=== PATIENT | male | born 1955 | race African-American/Black ===

== ENCOUNTER 2018-05-18 13:11 | Emergency (ER) | payer OTHER ==
[~2018-05-18] VITALS: Ht 188 cm; Wt 111.1 kg
[~2018-05-18 13:11] MED LIST: HALO100V IM; LISI10TA2 PO; OMEP20CA9 PO; TAMS0.4C2 PO
[2018-05-18] MEDS ORDERED: IV NORMAL SALINE 1000ML BAG 1,000 ML IV ONE (13:30)
--- NOTE | 2018-05-18 13:32 | PHYS DOC ---
Past Medical History Past Medical History: Schizophrenia Past Surgical History: No Surgical History Alcohol Use: None Drug Use: None Adult General Chief Complaint Chief Complaint: SYNCOPE HPI HPI Patient is a 62 year old male brought in by ambulance with a chief clinical or mental status. Apparently he was at the [facility] apparently has a history of schizophrenia and he was there because his friends were concerned about some bizarre behavior it is he does not recall exactly what it was. Apparently he received Haldol and Cogentin by the staff there and had a period of altered mental status he had vomiting and incontinence no definite seizure activity was identified blood sugar was 126 patient denied alcohol or drugs. On arrival to the emergency room the patient is now awake and alert and says that he is not having any symptoms. Review of Systems Review of Systems Constitutional: Denies fever or chills [] Eyes: Denies change in visual acuity, redness, or eye pain [] HENT: Denies nasal congestion or sore throat [] Respiratory: Denies cough or shortness of breath [] Cardiovascular: No additional information not addressed in HPI [] GI: Denies abdominal pain, Musculoskeletal: Denies back pain or joint pain [] Integument: Denies rash or skin lesions [] All other systems were reviewed and found to be within normal limits, except as documented in this note. Current Medications Current Medications Current Medications Medications (Trade) Dose Ordered Sig/Kane Start Time Stop Time Status Last Admin Dose Admin Lorazepam (Ativan) 2 mg 1X ONCE 05/18/18 14:45 05/18/18 14:46 DC 05/18/18 14:58 2 MG Sodium Chloride 1,000 ml @ 1,000 mls/hr 1X ONCE 05/18/18 13:30 05/18/18 14:29 DC 05/18/18 13:38 1,000 MLS/HR Allergies Allergies Allergies Coded Allergies Type Severity Reaction Last Updated Verified No Known Drug Allergies 11/21/15 No Physical Exam Physical Exam Constitutional: Well developed, well nourished, no acute distress, non-toxic appearance. [] HENT: Normocephalic, atraumatic, bilateral external ears normal, oropharynx moist, no oral exudates, nose normal. [] Eyes: PERRLA, EOMI, conjunctiva normal, no discharge. [] Neck: Normal range of motion, no tenderness, supple, no stridor. [] Pulmonary: Normal respiratory effort no increased work of breathing no obvious chest wall trauma lctab cv rrr no mrg Abdomen: Bowel sounds normal, soft, no tenderness, no masses, no pulsatile masses. [] Skin: Warm, dry, no erythema, no rash. [] Extremities: No tenderness, no cyanosis, no clubbing, ROM intact, mild symmetric edema. Neurologic: Alert and oriented X 2, b normal motor function, normal sensory function, no focal deficits noted. [] Psychologic: Blunted affect Current Patient Data Vital Signs Vital Signs Date Time Temp Pulse Resp B/P (MAP) Pulse Ox O2 Delivery O2 Flow Rate FiO2 05/18/18 14:10 96 125/80 (95) 96 Room Air 05/18/18 13:11 97.8 18 97.8 Lab Values Laboratory Tests Test 05/18/18 13:35 05/18/18 15:14 White Blood Count 6.8 x10^3/uL (4.0-11.0) Red Blood Count 5.16 x10^6/uL (4.30-5.70) Hemoglobin 13.6 g/dL (13.0-17.5) Hematocrit 41.0 % (39.0-53.0) Mean Corpuscular Volume 79 fL (79-100) Mean Corpuscular Hemoglobin 26 pg (25-35) Mean Corpuscular Hemoglobin Concent 33 g/dL (31-37) Red Cell Distribution Width 13.8 % (11.5-14.5) Platelet Count 163 x10^3/uL (140-400) Neutrophils (%) (Auto) 74 % (31-73) H Lymphocytes (%) (Auto) 18 % (24-48) L Monocytes (%) (Auto) 8 % (0-9) Eosinophils (%) (Auto) 0 % (0-3) Basophils (%) (Auto) 0 % (0-3) Neutrophils # (Auto) 5.0 x10^3uL (1.8-7.7) Lymphocytes # (Auto) 1.2 x10^3/uL (1.0-4.8) Monocytes # (Auto) 0.5 x10^3/uL (0.0-1.1) Eosinophils # (Auto) 0.0 x10^3/uL (0.0-0.7) Basophils # (Auto) 0.0 x10^3/uL (0.0-0.2) Prothrombin Time 13.4 SEC (11.7-14.0) Prothrombin Time INR 1.1 (0.8-1.1) Sodium Level 140 mmol/L (136-145) Potassium Level 4.1 mmol/L (3.5-5.1) Chloride Level 100 mmol/L (98-107) Carbon Dioxide Level 24 mmol/L (21-32) Anion Gap 16 (6-14) H Blood Urea Nitrogen 9 mg/dL (8-26) Creatinine 1.2 mg/dL (0.7-1.3) Estimated GFR (Cockcroft-Gault) 74.0 BUN/Creatinine Ratio 8 (6-20) Glucose Level 115 mg/dL (70-99) H Calcium Level 9.2 mg/dL (8.5-10.1) Magnesium Level 2.1 mg/dL (1.8-2.4) Total Bilirubin 0.8 mg/dL (0.2-1.0) Aspartate Amino Transferase (AST) 44 U/L (15-37) H Alanine Aminotransferase (ALT) 28 U/L (16-63) Alkaline Phosphatase 93 U/L (46-116) Troponin I Quantitative < 0.017 ng/mL (0.000-0.055) Total Protein 7.6 g/dL (6.4-8.2) Albumin 4.1 g/dL (3.4-5.0) Albumin/Globulin Ratio 1.2 (1.0-1.7) Ethyl Alcohol Level < 10 mg/dL (0-10) Urine Collection Type Void Urine Color Yellow Urine Clarity Clear Urine pH 6.5 Urine Specific Emmet 1.010 Urine Protein Negative mg/dL (NEG-TRACE) Urine Glucose (UA) Negative mg/dL (NEG) Urine Ketones (Stick) Trace mg/dL (NEG) Urine Blood Negative (NEG) Urine Nitrite Negative (NEG) Urine Bilirubin Negative (NEG) Urine Urobilinogen Dipstick 1.0 mg/dL (0.2 mg/dL) Urine Leukocyte Esterase Negative (NEG) Urine RBC 0 /HPF (0-2) Urine WBC 0 /HPF (0-4) Urine Squamous Epithelial Cells None /LPF Urine Bacteria 0 /HPF (0-FEW) Urine Opiates Screen Neg (NEG) Urine Methadone Screen Neg (NEG) Urine Barbiturates Neg (NEG) Urine Phencyclidine Screen Neg (NEG) Urine Amphetamine/Methamphetamine Neg (NEG) Urine Benzodiazepines Screen Neg (NEG) Urine Cocaine Screen Neg (NEG) Urine Cannabinoids Screen Neg (NEG) Urine Ethyl Alcohol Neg (NEG) Laboratory Tests 05/18/18 13:35 Laboratory Tests 05/18/18 13:35 EKG EKG [] Interpretation Time: EKG shows normal sinus rhythm rate of 99 no acute ischemic changes noted QTC 468 interpreted by me the time of encounter. Radiology/Procedures Radiology/Procedures [] Impressions: Findings: No acute extra-axial or parenchymal hemorrhage is identified. There is no significant intra-axial mass effect, midline shift, or extra-axial fluid collection. The rodriguez-white differentiation of the major vascular territories is preserved. The ventricles, sulci, and cisterns are within normal limits in size and configuration. The mastoid air cells and the visualized paranasal sinuses are aerated. No acute calvarial abnormality is identified. Impression: 1. No acute intracranial abnormality is identified. Electronically signed by: Theodore Lambert MD (05/18/2018 2:12 PM) [email or web address] DICTATED and SIGNED BY: THEODORE LAMBERT MD DATE: 05/18/18 1411 Course & Med Decision Making Course & Med Decision Making Pertinent Labs and Imaging studies reviewed. (See chart for details) []62-year-old male history of schizophrenia received Haldol and Cogentin #with altered mental status currently improving he is alert 2 is awake and alert history does raise some level suspicion for seizure activity also drug abuse is on the differential. EKG was normal QTC normal doubt arrhythmia genic Patient will get labs fluids head CT go from there Reassessment: Patient is awake and alert he had a meal he is complaining of no symptoms at all he is remained stable in the emergency room. Perhaps he was oversedated leading to a period of altered level of consciousness. I spoke with the I nurse and we will plan to send the patient back for further psychiatric care. Dragon Disclaimer Dragon Disclaimer This electronic medical record was generated, in whole or in part, using a voice recognition dictation system. Departure Departure Impression: Primary Impression: Altered mental status Disposition: 01 HOME, SELF-CARE Admitting Physician: Other Condition: STABLE Referrals: MAXWELL TOM MD (PCP) HOOD SALMERON MD May 18, 2018 13:32
--- NOTE | 2018-05-18 13:44 | EKG ---
[facility] [address] [place] [address] Test Date: 2018-05-18 Test Time: 13:24:57 Pat Name: HAYLEY BAR Department: Room: Gender: M Protohistorian: : 1955 Requested By: HOOD SALMERON Order Number: [id number] Reading MD: Measurements Intervals [place] Rate: 99 P: 54 MN: 146 QRS: 24 QRSD: 78 T: 12 QT: 360 QTc: 468 Interpretive Statements SINUS RHYTHM NORMAL ECG RI6.01 No previous ECG available for comparison
[2018-05-18 14:09] LABS: CALCIUM 9.2 mg/dL (8.5-10.1); CREATININE 1.2 mg/dL (0.7-1.3); POTASSIUM 4.1 mmol/L (3.5-5.1)
[2018-05-18 14:15] LABS: BASO % 0 % (0-3); EOS % 0 % (0-3); HEMOGLOBIN 13.6 g/dL (13.0-17.5); LYMPH # 1.2 x10^3/uL (1.0-4.8); LYMPH % 18 % (24-48); MEAN CORPUSCULAR HEMOGLOBIN 26 pg (25-35); MEAN CORPUSCULAR HGB CONC 33 g/dL (31-37); MEAN CORPUSCULAR VOLUME 79 fL (79-100); MONO # 0.5 x10^3/uL (0.0-1.1); MONO % 8 % (0-9); NEUT % 74 % (31-73); PLATELET COUNT 163 x10^3/uL (140-400); RED BLOOD COUNT 5.16 x10^6/uL (4.30-5.70); RED CELL DISTRIBUTION WIDTH 13.8 % (11.5-14.5); WHITE BLOOD COUNT 6.8 x10^3/uL (4.0-11.0)
[2018-05-18 14:16] LABS: ALBUMIN 4.1 g/dL (3.4-5.0); ALBUMIN/GLOBULIN RATIO 1.2 (1.0-1.7); MAGNESIUM 2.1 mg/dL (1.8-2.4); TOTAL BILIRUBIN 0.8 mg/dL (0.2-1.0); TOTAL PROTEIN 7.6 g/dL (6.4-8.2)
--- NOTE | 2018-05-18 14:16 | RAD ---
CT HEAD WO CONTRAST History: Altered mental status, seizure, syncope Comparison: None. Technique: Noncontrast CT imaging was performed of the head. Exposure: One or more of the following individualized dose reduction techniques were utilized for this examination: 1. Automated exposure control 2. Adjustment of the mA and/or kV according to patient size 3. Use of iterative reconstruction technique. Findings: No acute extra-axial or parenchymal hemorrhage is identified. There is no significant intra-axial mass effect, midline shift, or extra-axial fluid collection. The rodriguez-white differentiation of the major vascular territories is preserved. The ventricles, sulci, and cisterns are within normal limits in size and configuration. The mastoid air cells and the visualized paranasal sinuses are aerated. No acute calvarial abnormality is identified. Impression: 1. No acute intracranial abnormality is identified. Electronically signed by: Tyrone Whitfield MD (05/18/2018 2:12 PM) [id number]
[2018-05-18 14:17] LABS: PROTHROMBIN TIME PATIENT 13.4 SEC (11.7-14.0)
[2018-05-18] MEDS ORDERED: LORazepam 1 MG TABLET PO ONE (14:45)
[2018-05-18 15:39] LABS: AMPHETAMINE/METHAMPHETAMINE NEG (NEG); BARBITURATES NEG (NEG); BENZODIAZEPINES NEG (NEG); CANNABINOIDS NEG (NEG); COCAINE NEG (NEG); METHADONE NEG (NEG); OPIATES NEG (NEG); PHENCYCLIDINE NEG (NEG)
[2018-05-18 16:20] LABS: BILIRUBIN,URINE NEGATIVE (NEG); CLARITY,URINE CLEAR; COLOR,URINE YELLOW; NITRITE,URINE NEGATIVE (NEG); PH,URINE 6.5; PROTEIN,URINE NEGATIVE (NEG-TRACE)
[2018-05-18 16:30] VITALS: BP 122/80
[2018-05-18 16:37] LABS: BACTERIA,URINE 0 /HPF (0-FEW); RBC,URINE 0 /HPF (0-2); WBC,URINE 0 /HPF (0-4)
== END 2018-05-18 16:53 | disposition home or self-care (01) ==
LOC: ER 13:11
DX: R41.82 Altered mental status, unspecified (principal); R11.10 Vomiting, unspecified; R32 Unspecified urinary incontinence; F20.9 Schizophrenia, unspecified
CPT/HCPCS: 36415; 70450; 80053; 80307; 81001; 83735; 84484; 85025; 85610; 93005; 96360; 99285; G0480; J7030; G0479

== ENCOUNTER 2019-09-05 11:07 | Emergency (ER) | payer OTHER, MEDICAID ==
[~2019-09-05] VITALS: Ht 188 cm; Wt 106.0 kg
[~2019-09-05 11:07] MED LIST changes: +OMEP20CA16 PO; -OMEP20CA9 PO
--- NOTE | 2019-09-05 13:18 | RAD ---
STUDY: CT head without contrast INDICATION: Right retro-orbital pain. COMPARISON: 05/18/2018 TECHNIQUE: Axial CT imaging through the head without the use of intravenous contrast. Sagittal and coronal reformats were obtained. One or more of the following individualized dose reduction techniques were utilized for this examination: 1. Automated exposure control 2. Adjustment of the mA and/or kV according to patient size 3. Use of iterative reconstruction technique. FINDINGS: No acute intracranial hemorrhage. No mass effect, midline shift or hydrocephalus. No CT evidence for an acute cortical infarction. Redemonstrated patchy subcortical white matter low-attenuation at the right frontal lobe. Unremarkable appearance of the globes and intraconal soft tissues. Normally aerated portions of the paranasal sinuses and mastoid air cells included in the [id number]. Intact calvarium. IMPRESSION: No abnormality is identified to account for reported retro-orbital pain on the right. No acute intracranial abnormality. Collectively no significant change relative to 05/18/2018. Electronically signed by: ANN GERMAIN MD (09/05/2019 1:15 PM) [facility]
--- NOTE | 2019-09-05 13:30 | PHYS DOC ---
Past Medical History Past Medical History: Hypertension, Schizophrenia Past Surgical History: No Surgical History Alcohol Use: None Drug Use: None Adult General Chief Complaint Chief Complaint: FACE PAIN [facility] HPI Patient is a 63 year old male with history of schizophrenia and hypertension who presents via EMS with complaint of pain behind of right eye. Patient complaining of intermittent episodes of right orbital sharp pain since yesterday that last for about 5 second and repeated every 30 seconds and rated his pain 6/10 without blurred vision, nausea and vomiting, focal neuro deficit, history of the same problem. Patient state he didn't take any pain medication since yesterday. Patient states out of his blood pressure medication for 4 days and went to [facility] for refill of his medication and his blood pressure was 160 and treated with 1 pill of blood pressure medication and because of the pain was sent to emergency room by ambulance. Patient states he already had refill of his blood pressure medication. Review of Systems Review of Systems Constitutional: Denies fever or chills [] Eyes: Denies change in visual acuity, redness. HENT: Denies nasal congestion or sore throat [] Respiratory: Denies cough or shortness of breath [] Cardiovascular: No additional information not addressed in HPI [] GI: Denies abdominal pain, nausea, vomiting, bloody stools or diarrhea [] : Denies dysuria or hematuria [] Musculoskeletal: Denies back pain or joint pain [] Integument: Denies rash or skin lesions [] Neurologic: Denies headache, focal weakness or sensory changes [] Endocrine: Denies polyuria or polydipsia [] All other systems were reviewed and found to be within normal limits, except as documented in this note. Current Medications Current Medications Current Medications Medications (Trade) Dose Ordered Sig/[facility] Start Time Stop Time Status Last Admin Dose Admin Acetaminophen/ Hydrocodone Bitart (Lortab 5/325) 1 tab 1X ONCE 09/05/19 13:30 09/05/19 13:31 DC 09/05/19 13:52 1 TAB Allergies Allergies Allergies Coded Allergies Type Severity Reaction Last Updated Verified No Known Drug Allergies 11/21/15 No Physical Exam Physical Exam Constitutional: Well nourished, no acute distress, non-toxic appearance. [] HENT: Normocephalic, atraumatic, bilateral external ears normal, oropharynx moist, no oral exudates, nose normal. [] Eyes: PERRLA, EOMI, conjunctiva normal, no discharge. [] Neck: Normal range of motion, no tenderness, supple, no stridor. [] Cardiovascular:Heart rate regular rhythm, no murmur [] Lungs & Thorax: Bilateral breath sounds clear to auscultation [] Extremities: No tenderness, no cyanosis, no clubbing, ROM intact, no edema. [] Neurologic: Alert and oriented X 3, normal motor function, normal sensory function, no focal deficits noted. [] Psychologic: Affect normal, mood normal. [] Current Patient Data Vital Signs Vital Signs Date Time Temp Pulse Resp B/P (MAP) Pulse Ox O2 Delivery O2 Flow Rate FiO2 09/05/19 13:55 84 16 161/100 (120) 97 Room Air 09/05/19 12:30 98.0 98.0 EKG EKG [] Radiology/Procedures Radiology/Procedures [facility] [address] [place] [address] IMAGING REPORT Signed PATIENT: HAYLEY BAR ACCOUNT: [id number] : 1955 LOCATION: ER AGE: 63 SEX: M EXAM STATUS: REG ER ORD. PHYSICIAN: BRIGIDO JUAREZ MD REASON: right retro-orbital pain PROCEDURE: CT HEAD WO CONTRAST STUDY: CT head without contrast INDICATION: Right retro-orbital pain. COMPARISON: 05/18/2018 TECHNIQUE: Axial CT imaging through the head without the use of intravenous contrast. Sagittal and coronal reformats were obtained. One or more of the following individualized dose reduction techniques were utilized for this examination: 1. Automated exposure control 2. Adjustment of the mA and/or kV according to patient size 3. Use of iterative reconstruction technique. FINDINGS: No acute intracranial hemorrhage. No mass effect, midline shift or hydrocephalus. No CT evidence for an acute cortical infarction. Redemonstrated patchy subcortical white matter low-attenuation at the right frontal lobe. Unremarkable appearance of the globes and intraconal soft tissues. Normally aerated portions of the paranasal sinuses and mastoid air cells included in the [id number]. Intact calvarium. IMPRESSION: No abnormality is identified to account for reported retro-orbital pain on the right. No acute intracranial abnormality. Collectively no significant change relative to 05/18/2018. Electronically signed by: ANN GERMAIN MD (09/05/2019 1:15 PM) [id number] DICTATED and SIGNED BY: ANN GERMAIN MD DATE: 09/05/19 1315 Course & Med Decision Making Course & Med Decision Making Pertinent Imaging studies reviewed. (See chart for details) discharge: I've spoken with the patient and/or caregivers. I've explained the patient's condition, diagnosis and treatment plan based on information available to me at this time. I've answered the patient's and/or caregivers questions and addressed any concerns. The patient and/or caregivers have a good understanding the patient's diagnosis, condition and treatment plan as can be expected at this point. Vital signs have been stabilized. The patient's condition is stable for discharge from the emergency department. The patient will pursue further outpatient evaluation with her primary care provider or other designated consulting physician as outlined in the discharge instructions. Patient and/or caregivers are agreeable to this plan of care and follow-up instructions have been explained in detail. The patient and/or caregivers have received these instructions in written format and expressed understanding of these discharge instructions. The patient and her caregivers are aware that if any significant change in condition or worsening of symptoms should prompt him to immediately return to this of the closest emergency department. If an emergent department is not readily available I would encourage him to call 911. Debra Disclaimer Dragon Disclaimer This electronic medical record was generated, in whole or in part, using a voice recognition dictation system. Departure Departure Impression: Primary Impression: Retro-orbital pain of right eye Additional Impression: Hypertension, accelerated Disposition: HOME, SELF-CARE (at 1330) Condition: STABLE Referrals: REILLY JOSE MD (PCP) Patient Instructions: Managing Your High Blood Pressure, Pain Medicine Instructions Additional Instructions: Continue blood pressure medication Follow-up with your primary care physician in 3-5 days Return to ER if not getting better May take [id number] Tylenol as needed for pain Thank you for visiting [facility]. We appreciate you trusting us with your care. If any additional problems come up don't hesitate to return to visit us. Please follow up with your primary care provider so they can plan additional care if needed and know about the problem that you had. If symptoms worsen come back to the Emergency Department. Any concerning symptoms that start such as chest pain, shortness of air, weakness or numbness on one side of the body, running high fevers or any other concerning symptoms return to the ER. Problem Qualifiers BRIGIDO JUAREZ MD Sep 05, 2019 13:30
[2019-09-05] MEDS: HYDROcodone/APAP 5/325MG 1 TAB TABLET PO ONE (13:52)
[2019-09-05 13:55] VITALS: BP 161/100
== END 2019-09-05 13:55 | disposition home or self-care (01) ==
LOC: ER 11:07
DX: H57.11 Ocular pain, right eye (principal); F20.9 Schizophrenia, unspecified; I10 Essential (primary) hypertension; R11.2 Nausea with vomiting, unspecified
CPT/HCPCS: 70450; 99284